=== PATIENT | female | born 1970 | race Two or more races ===

== ENCOUNTER → 2016-05-21 | Outpatient (CLI) | payer OTHER | LOC: CIMAGING 14:49 | PROVIDERS: ATTEND Internal Medicine | DX: M43.12 Spondylolisthesis, cervical region (principal); M51.37 Other intervertebral disc degeneration, lumbosacral region; M25.561 Pain in right knee | CPT/HCPCS: 72050-PO; 72100-PO; 73521-PO; 73564-PO ==